=== PATIENT | male | born 1960 | race Caucasian/White ===

== ENCOUNTER 2017-09-21 18:58 | Emergency (ER) | payer SELFPAY, OTHER ==
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
== END 2017-09-21 20:28 | disposition home or self-care (01) ==
LOC: SCSER 18:58
DX: S32.401A Unspecified fracture of right acetabulum, initial encounter for closed fracture (principal); S32.591A Other specified fracture of right pubis, initial encounter for closed fracture; F17.210 Nicotine dependence, cigarettes, uncomplicated; V20.4XXA Motorcycle driver injured in collision with pedestrian or animal in traffic accident, initial encounter
CPT/HCPCS: 72170; 72192

== ENCOUNTER 2017-09-27 12:02 | Emergency (ER) | payer OTHER, SELFPAY ==
[2017-09-27 13:32] LABS: #Basophils 0.1 thou/uL (0.0-0.2); #Eosinphils 0.2 thou/uL (0.0-0.7); #Lymphocytes 0.9 thou/uL (1.20-3.40); #Monocytes 0.6 thou/uL (0.11-0.59); #Neutrophils 5.8 thou/uL (1.40-6.50); %Basophils 0.9 % (0.0-1.0); %Eosinophils 2.1 % (0.0-10.0); %Lymphocytes 12.2 % (21.0-51.0); %Monocytes 8.1 % (0.0-10.0); Hematocrit 34.8 % (42.0-52.0); Mean Platelet Volume 5.8 fL (7.4-10.4); Red Blood Cell (RBC) Count 3.79 mill/uL (4.70-6.10); White Blood Cell (WBC) Count 7.6 thou/uL (4.8-10.8)
[2017-09-27 13:47] LABS: Anion Gap 14 mmol/L (10-20); BUN (Urea Nitrogen) 16 mg/dL (8.4-25.7); Calc. Creatinine Clearance 0 mL/min (70-130); Calcium 9.1 mg/dL (7.8-10.44); Carbon Dioxide 27 mmol/L (22-29); Chloride 102 mmol/L (98-107); Estimated GFR-MDRD Greater than 90
[2017-09-27] MEDS ORDERED: Adacel (T-DAP) 0.5 ML VIAL ONE (14:52)
--- NOTE | 2017-09-27 15:04 | RAD ---
RIGHT TIBIA AND FIBULA 2 VIEWS: Date: 09/27/17 HISTORY: Pain. COMPARISON: None. FINDINGS: Mild edema. No fracture or malalignment. IMPRESSION: Mild edema. POS: [facility]
--- NOTE | 2017-09-27 15:08 | RAD ---
2 VIEWS LEFT TIBIA AND FIBULA: Date: 09/27/17 HISTORY: Swelling. FINDINGS: AP and lateral views of left tibia and fibula obtained. The left tibia and fibula are unremarkable. No evidence of fractures, subluxations, or bony lesions s een. IMPRESSION: Normal 2 views left tibia and fibula. POS: [facility]
--- NOTE | 2017-09-27 15:39 | ULT ---
HISTORY: Patient with history of right acetabular fracture. Bilateral lower extremity swelling and pain. BILATERAL LOWER EXTREMITY VENOUS DOPPLER ULTRASOUND EVALUATION 09/27/17 Multiple longitudinal and transverse images of the right and left lower extremity venous systems are obtained using multihertz linear array transducer. Real time, color flow and spectral waveform dopple r analysis demonstrates no evidence of acute or old clots seen in the right or left common femoral, s uperficial femoral, femoral profunda, popliteal, posterior tibial vein or post trifurcation veins. IMPRESSION: No evidence of right or left lower extremity deep venous thrombosis. POS: [facility]
--- NOTE | 2017-09-27 15:41 | ULT ---
BILATERAL LOWER EXTREMITY ARTERIAL DOPPLER ULTRASOUND: Date: 09/27/17 HISTORY: Bilateral lower extremity pain. FINDINGS: Multiple longitudinal and transverse images of the right and left lower extremity arterial systems ar e obtained using a multihertz linear array transducer. Real-time, color flow, and spectral waveform D oppler analysis obtained. Right lower extremity: Right common femora artery, superficial femoral artery, popliteal artery, anterior tibial artery, pos terior tibial artery, and dorsalis pedis artery are all patent without evidence of significant flow-l imiting lesions. Triphasic waveforms seen in the right lower extremity arteries. Left lower extremity: Left common femoral artery, superficial femoral artery, femora profunda, and popliteal artery all de monstrate normal triphasic waveform. Monophasic waveforms seen in the left anterior and posterior tib ial artery and left dorsalis pedis. This may represent post-trifurcation artery disease. IMPRESSION: 1. No evidence of right lower extremity arterial abnormality seen on sonography. 2. Findings concerning for possible left post-trifurcation arterial disease. The proximal left lower extremity arteries do appear to be patent. POS: [facility]
== END 2017-09-27 15:20 | disposition home or self-care (01) ==
LOC: SCSER 12:02
DX: S80.12XA Contusion of left lower leg, initial encounter (principal); S80.11XA Contusion of right lower leg, initial encounter; L03.115 Cellulitis of right lower limb; F17.200 Nicotine dependence, unspecified, uncomplicated; Z79.891 Long term (current) use of opiate analgesic; X58.XXXA Exposure to other specified factors, initial encounter
CPT/HCPCS: 36415; 80048; 85025; 85730; 90471; 90715; 93923; 93970